=== PATIENT | male | born 1950 | race Caucasian/White ===

== ENCOUNTER → 2023-09-25 06:54 | Outpatient (REF) | payer MEDICARE, SELFPAY | LOC: MRI 3T 06:54 | PROVIDERS: ATTENDING PHYSICIAN Orthopaedic Surgery | DX: M25.552 Pain in left hip (principal) | CPT/HCPCS: 73721 ==

== ENCOUNTER 2023-11-21 14:13 | Emergency (ER) | payer MEDICARE, SELFPAY ==
[2023-11-21 14:18] VITALS: BP 147/76
[2023-11-21 14:40] LABS: % Basophils 1.3 % (0-2); % Immature Granulocytes 0.3 % (0-0.5); % Lymphocytes 23.4 % (20.5-51.1); % Monocytes 8.5 % (1.7-9.3); % Neutrophils 63.5 % (42.2-75.2); Absolute Basophils 0.1 10^3/uL (0-0.2); Absolute Eosinophils 0.2 10^3/uL (0-0.7); Absolute Lymphocytes 1.7 10^3/uL (1.2-3.4); Absolute Monocytes 0.6 10^3/uL (0.1-0.6); Absolute Neutrophils 4.5 10^3/uL (1.4-6.5); Hematocrit 39.6 % (39.0-52.0); Hemoglobin 13.6 g/dL (13.0-18.0); Mean Corp Hgb Conc. 34.3 g/dL (33.0-37.0); Mean Corpuscular Hgb 30.7 pg (27.0-31.0); Mean Corpuscular Volume 89.4 fL (80.0-94.0); Mean Platelet Volume 11.3 fL (7.4-10.4); Nucleated Red Blood Cells % 0 % (-); Platelet Count 243 10^3/uL (130-400); Red Blood Cell Count 4.43 10^6/uL (4.70-6.10); Red Cell Dist. Width 12.4 % (11.5-14.5); White Blood Cell Count 7.1 10^3/uL (4.8-10.8)
[2023-11-21 15:07] LABS: ALT (SGPT) 28 U/L (0-50); AST (SGOT) 31 U/L (17-59); Albumin 4.6 g/dl (3.5-5.0); Alkaline Phosphatase 50 U/L (38-126); Blood Urea Nitrogen 30 mg/dl (9-20); Calcium 9.4 mg/dl (8.4-10.2); Carbon Dioxide 25 mmol/L (22-30); Chloride 108 mmol/L (98-107); Glucose 119 mg/dl (70-99); Lipase 152 U/L (23-300); Potassium 4.5 mmol/L (3.5-5.1); Sodium 139 mmol/L (135-145); Total Bilirubin 0.5 mg/dl (0.2-1.3); Total Protein 6.9 g/dl (6.3-8.2); eGFR > 60.00
[2023-11-21 17:21] VITALS: BMI 28.5
[2023-11-21] MEDS: OMNIPAQUE 50 ML PO (17:31)
[2023-11-21 19:15] VITALS: BP 140/81
[2023-11-21 20:54] VITALS: BP 160/83
--- NOTE | 2023-11-21 23:24 | ED.GENMED ---
History of Present Illness
General
Chief Complaint: Abdominal Symptoms
Source: patient
Exam Limitations: none
Time Seen by Provider: 11/21/23 16:18
Nursing documentation reviewed up to this point in time: agreed with
Travel History
Have you had any contact with someone who has COVID-19?: No
Do you have any symptoms of coronavirus? Fever > 100 degrees, chills, cough, shortness of breath, sore throat, loss of taste or smell, muscle aches, or headache?: No
History of Present Illness
History of Present Illness:
Patient to ED from for eval of 'obstruction' Patient states his last normal BM was 1 week ago. has been using miralax and dulcolax without improvement. He was evaluated at and had xray of abdomen. Told that he has 2 obstructions and should
come to ED. Denies fever/chlls, n/v/d. Eating and drinking normally,No prior history of same. Brought to ED by for eval.
Past History
Past History
ED Past Medical History: HTN, Hypercholesterolemia and Other (glaucoma)
ED Past Surgical History: None
Review of Systems
Review of Systems
Allergies reviewed?: Yes
All Other Systems: ROS reviewed and negative except as documented in HPI and ROS
Constitutional: Reports no symptoms
EENT: Reports no symptoms
Respiratory: Reports no symptoms
Cardiac: Reports no symptoms
ABD/GI: Reports constipated
: Reports no symptoms
Musculoskeletal: Reports no symptoms
Skin: Reports no symptoms
Neurological: Reports no symptoms
Psychiatric: Reports no symptoms
Phy Exam
General Physical Exam
General Presentation: well appearing and no apparent distress
General age: appears stated age
General Skin: warm and dry
General Habitus: normal
General Mental: alert
Gastrointestinal Exam
Gastrointestinal Exam: normal bowel sounds, non tender, soft, no organomegaly, no pulsatile mass, non distended and no cva tenderness
Musculoskeletal Exam
Musculoskeletal Exam: full ROM and neuro vasc intact
Skin Exam
Skin Exam: normal color, warm/dry and no rash
Psychiatric Exam
Psychiatric Exam: normal mood/affect
Course
Orders/Labs/Results
Orders:
Orders
11/21/23 14:33
Complete Blood Count/With Diff Urgent
Comprehensive Metabolic Panel Urgent
Lipase Urgent
11/21/23 17:19
Iohexol [Omnipaque] See Protocol PO NOW STA
11/21/23 17:20
CT Abd/pel W Iv And Oral Contr Urgent
Comment:
Reason For Exam: pain, diffuse
Abnormal Lab Results
11/21/23
14:33
RBC 4.43 L 10^6/uL
(4.70-6.10)
MPV 11.3 H fL
(7.4-10.4)
Chloride 108 H mmol/L
(98-107)
BUN 30 H mg/dl
(9-20)
Glucose 119 H mg/dl
(70-99)
11/21/23 14:33
11/21/23 14:33
Vital Signs
Initial and Last Documented VS:
Initial Vital Signs
Temp Pulse Resp BP Pulse Ox
98.4 F 72 20 147/76 97
11/21/23 14:18 11/21/23 14:18 11/21/23 14:18 11/21/23 14:18 11/21/23 14:18
Last Documented Vital Signs
Temp Pulse Resp BP Pulse Ox
98.6 F 72 20 160/83 99
11/21/23 20:54 11/21/23 20:54 11/21/23 20:54 11/21/23 20:54 11/21/23 20:54
*Radiology
Radiology exam reviewed: radiology read reviewed
*Pulse Oximetry
Patient hypoxic: no
*Critical Care Note
Total Time (30-74mins, 75-104mins- exclusive of procedures): Not Applicable
Update Note
Update Note:
No obstruction noted on CT. +constipation. Enema offered in dept but he states he feels more comfortable going home and using fleets Will discharge home. He was given instructions on s/s to reutrn to ED and he is agreeable to plan.
ED Attending Note
-
Portions of this chart may have been created with voice recognition software.� Occasional wrong word or��sound alike� substitutions may have occurred due to the inherent limitations of voice recognition software.
Discharge Plan
Departure
Patient Disposition: Home (Routine Discharge)
Date of Disposition: 11/21/23
Time of Disposition: 20:39
Patient with high blood pressure during this ER visit?: No
Condition: Good
Covid-19: Not Applicable
Discharge Problem:
Acute constipation
Instructions: Polyethylene Glycol 3350, Constipation, Adult (DC), How to Use an Enema
Prescriptions:
No Action
atorvastatin [Lipitor] 40 mg Tablet
40 mg PO HS
sennosides [senna] 8.6 mg Tablet
8.6 mg PO DAILYPRN PRN (Reason: CONSTIPATION)
acetaminophen [Tylenol] 325 mg Tablet
650 mg PO Q4HPRN PRN (Reason: MILD PAIN)
polyethylene glycol 3350 [Miralax] 17 gram Powder In Packet
17 g PO DAILYPRN PRN (Reason: CONSTIPATION)
Theragen Tablet
1 tab PO DAILY
aspirin 81 mg Tablet,Delayed Release (Dr/Ec)
81 mg PO DAILY
carvedilol [Coreg] 3.125 mg Tablet
1.56 mg PO BID
ginkgo biloba [Ginkoba] 40 mg Tablet
40 mg PO DAILY
bisacodyl [Dulcolax (bisacodyl)] 10 mg Suppository
10 mg DC DAILYPRN PRN (Reason: CONSTIPATION)
dorzolamide 2 % Drops
1 drp BOTH EYES BID
Lumigan 0.01 % Drops
1 drp BOTH EYES HS
krill oil 500 mg Capsule
500 mg PO DAILY
Hyaluronic Acid (chond-collgn) 40-80-400 mg Capsule
1 cap PO DAILY
coQ10 (ubiquinol) 100 mg Capsule
100 mg PO DAILY
turmeric-turmeric ext-pepper 500-3 mg Capsule
1 cap PO DAILY
magnesium oxide 200 mg magnesium Tablet
200 mg PO DAILY
Lions Main
1 cap PO DAILY
Referrals:
NONE,* [Family Provider] -
Activity Restrictions/Additional Instructions:
Follow up with your family doctor.
Interventions
Interventions:
*Risk Screen - Suicide Last Done: 11/21/23 14:18
*General Assessment Last Done: 11/21/23 14:18
*Neglect/Abuse Screening Last Done: 11/21/23 14:18
*Nursing Disposition Last Done: 11/21/23 20:54
GB-Uetnsn-Usqqqzpdpb Assessment Last Done: 11/21/23 17:21
Discharge Date and Time
Discharge Date/Time: 11/21/23 20:55
Print Language: FAROESE
== END 2023-11-21 20:55 | disposition home or self-care (01) ==
LOC: EMR 14:13
PROVIDERS: EMERGENCY PHYSICIAN Emergency Medicine
DX: K59.09 Other constipation (principal); I10 Essential (primary) hypertension; E78.00 Pure hypercholesterolemia, unspecified; H40.9 Unspecified glaucoma; Z79.82 Long term (current) use of aspirin; Z91.018 Allergy to other foods
CPT/HCPCS: 99285; 74177; 80053; 83690; 85025; Q9967

== ENCOUNTER 2023-11-26 11:51 | Emergency (ER) | payer MEDICARE, SELFPAY ==
[2023-11-26 11:55] VITALS: BP 156/91; BMI 27.8
[2023-11-26] MEDS: XANAX 0.5 MG PO (13:07)
[2023-11-26] MEDS: DUPHALAC/CHRONULAC 20 GRAMS PO (14:09)
--- NOTE | 2023-11-26 15:04 | ED.GENMED ---
History of Present Illness
General
Chief Complaint: Anal/Rectal Problem
Source: patient
Exam Limitations: none
Time Seen by Provider: 11/26/23 12:13
Nursing documentation reviewed up to this point in time: agreed with
Travel History
Have you had any contact with someone who has COVID-19?: No
Do you have any symptoms of coronavirus? Fever > 100 degrees, chills, cough, shortness of breath, sore throat, loss of taste or smell, muscle aches, or headache?: No
History of Present Illness
History of Present Illness:
73-year-old male with past medical history of hypertension hyperlipidemia previous [place] presenting to the emergency department today with concerns of ongoing constipation over the past 2 weeks. He was seen here few days ago and had a CT scan that
showed constipation was sent home on MiraLAX. Denies any relief. Has been seen at an urgent care twice as well but has not received any relief. No emergent findings on CT scan recently.
Past History
Past History
ED Past Medical History: HTN, Hypercholesterolemia and Other (glaucoma)
ED Past Surgical History: None
Review of Systems
Review of Systems
Allergies reviewed?: Yes
All Other Systems: ROS reviewed and negative except as documented in HPI and ROS
Phy Exam
Physical Exam
Physical Exam:
GENERAL: Alert , in no apparent distress
EYE: pupils equal and reactive
NECK: Supple, no significant adenopathy.
ENT: o/p clr, mmm.
CARDIAC: Regular rate and rhythm .
LUNGS: Clear breath sounds bilaterally, no acute respiratory distress, no wheezes/rales/rhonchi
ABDOMEN: Soft, without focal tenderness, no r/g, no cvat
No palpable fecal impaction.
NEUROLOGICAL: Alert and oriented, no focal neuro deficits
SKIN: Warm and dry, skin intact.
MUSCULOSKELETAL: No edema, well perfused.
PSYCH: Normal and appropriate interaction.
Course
Orders/Labs/Results
Orders:
Orders
11/26/23 12:48
Alprazolam [Xanax] 0.5 mg PO NOW STA
11/26/23 13:56
Enema- Treatment ONCE
Type: Milk of Molasses
11/26/23 13:57
Lactulose [Duphalac/Chronulac] 20 grams PO ONCE ONE
Vital Signs
Initial and Last Documented VS:
Initial Vital Signs
Temp Pulse Resp BP Pulse Ox
98.1 F 80 16 156/91 97
11/26/23 11:55 11/26/23 11:55 11/26/23 11:55 11/26/23 11:55 11/26/23 11:55
Last Documented Vital Signs
Temp Pulse Resp BP Pulse Ox
98.1 F 80 16 156/91 97
11/26/23 11:55 11/26/23 11:55 11/26/23 11:55 11/26/23 11:55 11/26/23 11:55
MDM/Problems Addressed
MDM/Problems Addressed:
73-year-old male presenting to the emergency department today with concerns of constipation over the past 14 days. He had a recent CT scan here that did not show any emergent findings but he was significantly constipated. Here he was in having an
initial rectal exam that did not have any palpable fecal impaction he was given an enema and was able to be fully disimpacted had large bowel movements here felt much better and wanted to go home. Otherwise he was advised for close outpatient
follow-up. Return precautions given.
*Critical Care Note
Total Time (30-74mins, 75-104mins- exclusive of procedures): Not Applicable
ED Attending Note
-
Portions of this chart may have been created with voice recognition software.� Occasional wrong word or��sound alike� substitutions may have occurred due to the inherent limitations of voice recognition software.
Discharge Plan
Departure
Patient Disposition: Home (Routine Discharge)
Date of Disposition: 11/26/23
Time of Disposition: 15:04
Patient with high blood pressure during this ER visit?: No
Condition: Good
Covid-19: Not Applicable
Discharge Problem:
Constipation
Instructions: Constipation, Adult (DC)
Prescriptions:
New
magnesium citrate Solution
300 ml PO ONCE PRN (Reason: Constipation) Qty: 296 0RF
No Action
atorvastatin [Lipitor] 40 mg Tablet
40 mg PO HS
sennosides [senna] 8.6 mg Tablet
8.6 mg PO DAILYPRN PRN (Reason: CONSTIPATION)
acetaminophen [Tylenol] 325 mg Tablet
650 mg PO Q4HPRN PRN (Reason: MILD PAIN)
polyethylene glycol 3350 [Miralax] 17 gram Powder In Packet
17 g PO DAILYPRN PRN (Reason: CONSTIPATION)
Theragen Tablet
1 tab PO DAILY
aspirin 81 mg Tablet,Delayed Release (Dr/Ec)
81 mg PO DAILY
carvedilol [Coreg] 3.125 mg Tablet
1.56 mg PO BID
ginkgo biloba [Ginkoba] 40 mg Tablet
40 mg PO DAILY
bisacodyl [Dulcolax (bisacodyl)] 10 mg Suppository
10 mg DC DAILYPRN PRN (Reason: CONSTIPATION)
dorzolamide 2 % Drops
1 drp BOTH EYES BID
Lumigan 0.01 % Drops
1 drp BOTH EYES HS
krill oil 500 mg Capsule
500 mg PO DAILY
Hyaluronic Acid (chond-collgn) 40-80-400 mg Capsule
1 cap PO DAILY
coQ10 (ubiquinol) 100 mg Capsule
100 mg PO DAILY
turmeric-turmeric ext-pepper 500-3 mg Capsule
1 cap PO DAILY
magnesium oxide 200 mg magnesium Tablet
200 mg PO DAILY
Lions Main
1 cap PO DAILY
Referrals:
NONE,* [Family Provider] -
Activity Restrictions/Additional Instructions:
You can to the emergency department today with concerns of significant constipation. This seemed to be improved here in the ER. Please follow close with the primary care doctor for further management of this. Return to the emergency department
for any worsening, new or concerning symptoms.
Interventions
Interventions:
*Risk Screen - Suicide Last Done: 11/26/23 11:55
*General Assessment Last Done: 11/26/23 13:39
*Neglect/Abuse Screening Last Done: 11/26/23 11:55
ED- Fall Risk Assessment Last Done: 11/26/23 11:55
*ED COVID-19 Vaccine History Last Done: 11/26/23 11:55
FM-Vbdhje-Ugfqiywzbg Assessment Last Done: 11/26/23 13:38
ED-Skin Assessment Last Done: 11/26/23 13:38
Discharge Date and Time
Print Language: BELGIAN
== END 2023-11-26 15:36 | disposition home or self-care (01) ==
LOC: EMR 11:51
PROVIDERS: EMERGENCY PHYSICIAN Student in an Organized Health Care Education/Training Program
DX: K59.00 Constipation, unspecified (principal)
CPT/HCPCS: 99283